=== PATIENT | female | born 1985 | race African-American/Black ===

== ENCOUNTER 2024-04-08 14:40 | Emergency (ER) | payer MEDICAID, SELFPAY ==
--- NOTE | ~2024-04-08 | CT_ITS ---
EXAMINATION: CT HEAD WITHOUT CONTRAST CLINICAL INFORMATION: Headache COMPARISON: None available. TECHNIQUE: Contiguous axial imaging was performed from the skull base to vertex without intravenous administration of contrast. This CT examination was performed using dose optimization techniques as appropriate, variously including the following: *Automated exposure control *Adjustment of mA and/or kV according to patient size (this includes techniques or standardized protocols for targeted exams where dose is matched to indication/reason for exam; i.e. extremities or head) *Use of iterative reconstruction technique DLP: 682 mGy-cm RESULTS: There is no evidence of acute intracranial hemorrhage, acute large vessel infarct, midline shift or mass effect. The walter-white differentiation is preserved. The ventricles and sulci are within normal limits in size and configuration. There is no evidence of hydrocephalus. There are no extraaxial collections. Osseous structures are intact. Left maxillary sinus mucosal thickening and fluid. CT/CT head/brain wo IV con IMPRESSION: 1. No acute intracranial pathology. 2. Left maxillary sinus disease. Electronically signed by: Brittany Interiano MD 04/08/2024 04:42 PM ES
--- NOTE | 2024-04-08 15:01 | ED.HA ---
HPI - Headache General Chief Complaint: Headache Stated Complaint: headache sent from urgent care Time Seen by Provider: 04/08/24 21:07 History of Present Illness ED Provider: Bobby ASHER Narrative: The patient is a 38-year-old female who says that she has been having problems with headaches for the last 2-3 months. She says that she has been taking a lot of Tylenol for these pains. She says that she may have had similar headaches a few years ago. She says that she recently stood up and felt that her vision was blurry. She has had no fever. She has had no neck stiffness. Related Data Previous Rx's ?Medication ?Instructions ?Recorded ibuprofen 400 mg tablet 400 mg PO Q6H PRN pain #14 tabs 04/08/24 Allergies Allergy/AdvReac Type Severity Reaction Status Date / Time No Known Allergies Allergy Verified 04/08/24 15:06 Review of Systems Review of Systems: Yes all other systems are reviewed and are negative [facility] Social History Social History Smoked in Last 30 Days: No Use of substances other than those prescribed or required for medical reasons: No Advance Directives: No Advance Directives Information Provided: Yes Patient : No Physical Exam Vital Signs: Vital Signs: Last Vital Signs Temp 97.8 F 04/08/24 21:57 Pulse 66 04/08/24 21:57 Resp 18 04/08/24 21:57 BP 108/67 04/08/24 21:57 Pulse Ox 100 04/08/24 21:57 O2 Del Method Room Air 04/08/24 21:57 BMI result Body Mass Index 27.5 Const: Other: The patient is awake, alert, cooperative. She does not appear ill. She does not appear obviously uncomfortable. HEENT: Other: Face is symmetrical. Mucous membranes moist. The pharynx is unremarkable. Eyes: Other: Pupils are round equal and reactive to light, conjunctivae are clear, extraocular movements are intact. Funduscopic exam is unremarkable. Neck: Other: The neck is entirely supple. She can touch her chin to her chest very easily. Resp: Effort & Inspection: normal respiratory effort Auscultation: clear to auscultation bilaterally Cardio: Rate: regular rate Rhythm: regular rhythm Heart sounds: S1 normal heart sound present and S2 normal heart sound present GI: Other: Abdomen is soft nontender Skin: Other: skin is dry and unremarkable Neuro: Other: the patient is awake and alert with normal mental status. Her demeanor is benign. Pupils are round, equal, and reactive to light, extraocular movements are intact, funduscopic exam was unremarkable, face is symmetrical, speech is clear, neck is supple, she moves her extremities normally and appropriately. I believe she is neurologically intact. He Extrem: Other: no peripheral edema Course Course Course Narrative: This is a Rapid Medical Exam performed in triage by Lee Ann Ambriz PA-C. Full HPI, ROS and PE to be performed by primary ED provider. 38yo F Israeli Creole speaking presenting to the ED c/o sent from for headache x2-3 months. Admits to assoc intermittent blurry vision since YODER started. Patient feels YODER may be related to increased stress/anxiety around trying to seek employment. Also reports menstruation 2 x monthly, heavy, unsure if this is related to headaches PE: no focal deficits, ambulating w/steady gait Plan: viral testing, head CT, labs Medications Administered Discontinued Medications Generic Name Dose Route Start Last Admin Trade Name Jak PRN Reason Stop Dose Admin Ketorolac Tromethamine 30 mg 04/08/24 21:20 04/08/24 21:31 Ketorolac Tromethamine 30 Mg/Ml Vial IM 04/08/24 21:21 30 mg ONCE ONE Administration Prochlorperazine Edisylate 10 mg 04/08/24 21:20 04/08/24 21:31 Prochlorperazine Edisylate 10 Mg/2 Ml Vial IM 04/08/24 21:21 10 mg ONCE ONE Administration Medical Decision Making Medical Decision Making [facility] Narrative: the patient is a previous healthy 38-year-old woman. She is from [facility]. She speaks Israeli Creole. She was interviewed using a [place] Creole registered nurse maternity. She is here for evaluation of a headache that has been bothering her for 2-3 months. She has had previous headaches in the past I believe. Clinically I think the patient's physical exam is extremely reassuring. Labs and head CT had been ordered at triage. These are unremarkable. The patient had had a long wait in the waiting room. She was eager to be discharged because she has 3 small children she needs to care for. She was given injection of ketorolac and prochlorperazine. She did not know who her primary care doctor was. the stockroom inventory clerk was able to determine that she should be seen at the [facility] in [place]. She was given their contact information for follow-up. She was also given the name of other PCP offices which may be taking new patients. She was discharged. Lab Data 04/08/24 15:20 04/08/24 15:20 Labs: Lab Results 04/08/24 Range/Units 15:20 WBC 6.9 (4.8-10.8) X10*3/uL RBC 3.63 L (4.20-5.50) X10*6/uL Hgb 10.2 L (12.0-16.0) g/dl Hct 31.4 L (37.0-47.0) % MCV 86.5 (80.0-98.0) fL MCH 28.1 (27.0-33.0) pg MCHC 32.5 (31.0-35.0) g/dl RDW 13.3 (11.0-16.0) % Plt Count 242 (160-400) X10*3/uL MPV 11.0 (9.4-12.3) fL Immature Gran % (Auto) 0.4 (0.0-0.4) % Neut % (Auto) 64.1 (45-73) % Lymph % (Auto) 27.2 (20-40) % Benzie % (Auto) 7.0 (2-11) % Eos % (Auto) 1.0 (0-4) % Baso % (Auto) 0.3 (0-2) % Lymph # (Auto) 1.9 (1.2-4.9) X10*3/uL Benzie # (Auto) 0.5 (0.1-1.2) X10*3/uL Eos # (Auto) 0.1 (0.0-0.4) X10*3/uL Baso # (Auto) 0.0 (0.0-0.2) X10*3/uL Abs Immat Gran (auto) 0.03 (0.00-0.03) X10*3/uL Absolute Neuts (auto) 4.4 (2.0-8.3) x10*3/uL Absolute Nucleated RBC 0.000 (0.0-0.012) X10*3/uL Nucleated RBC % (auto) 0.0 (0.0-0.2) /100WBC Sodium 142 (135-145) mmol/L Potassium 3.6 (3.3-5.1) mmol/L Chloride 109 H (96-108) mmol/L Carbon Dioxide 24 (22-29) mmol/L Anion Gap 13 (12-20) BUN 11 (9-16) mg/dL Creatinine 0.79 (0.5-1.4) mg/dL Estim Creat Clear Calc 101.4 Estimated GFR > 60 Random Glucose 83 (60-115) mg/dL Calcium 9.0 (8.4-10.2) mg/dL Total Bilirubin 0.4 (0.0-1.0) mg/dL Direct Bilirubin 0.1 (0.0-0.5) mg/dL AST 19 (5-31) U/L ALT 15 (0-31) U/L Alkaline Phosphatase 49 (39-117) U/L C-Reactive Protein < 0.10 (< or = 0.50) mg/dL Total Protein 6.9 (6.5-8.0) g/dL Albumin 4.0 (3.5-5.0) g/dL Beta HCG, Quant < 2 mIU/mL Influenza Type A (PCR) NEGATIVE (Negative) Influenza Type B (PCR) NEGATIVE (Negative) RSV RNA Qual (PCR) NEGATIVE (Negative) SARS-CoV-2 RNA (RT-PCR) NEGATIVE (Negative) Discharge Plan Discharge Clinical Impression: Headache Patient Disposition: Home, Self-Care Additional Instructions: Your testing in the emergency department today seems reassuring. You were given shots of medicine which I hope will help with your headache. Please work on getting a new primary care doctor. Our stockroom inventory clerk has determined that you should be getting your primary care through the [facility] at [address] [place] [address] in [place]. I have also put the names of 2 other providers who might be taking new patients. You may use ibuprofen and acetaminophen as needed for pain. I have sent a prescription for ibuprofen to the [facility] on [address] in [place]. Return to the emergency room if worse. Prescriptions: New ibuprofen 400 mg tablet 400 mg PO Q6H PRN (Reason: pain) Qty: 14 0RF Referrals: [facility] [Provider Group] (Headache) Mihaela Andrews PA-C [Physician Glue Maker] - (Headache, needs PCP) Alexandru Oliva MD [Physician] - (headache, needs PCP) Interventions: ED Discharge Assessment Last Done: 04/08/24 21:57 Discharge Date/Time: 04/08/24 21:58 Print Language: Vincent Jamil
[2024-04-08 15:04] VITALS: BP 121/70; PULSE 80; RESP 16; TEMP 36.8; O2SAT 98; BMI 27.5
[2024-04-08 15:26] LABS: MANUAL DIFF FLAG NO
[2024-04-08 15:28] LABS: Basophils Percent Auto 0.3 % (0-2); Eosinophils Absolute Auto 0.1 X10*3/uL (0.0-0.4); Hematocrit 31.4 % (37.0-47.0); Hemoglobin 10.2 g/dl (12.0-16.0); Imm Gran Abs Auto 0.03 X10*3/uL (0.00-0.03); Imm Gran Pct Auto 0.4 % (0.0-0.4); Lymphocytes Absolute Auto 1.9 X10*3/uL (1.2-4.9); Lymphocytes Percent Auto 27.2 % (20-40); Mean Corpuscular HGB Conc 32.5 g/dl (31.0-35.0); Mean Corpuscular Hemoglobin 28.1 pg (27.0-33.0); Mean Corpuscular Volume 86.5 fL (80.0-98.0); Monocytes Absolute Auto 0.5 X10*3/uL (0.1-1.2); Neutrophils Absolute Auto 4.4 x10*3/uL (2.0-8.3); Neutrophils Percent Auto 64.1 % (45-73); Platelet Count 242 X10*3/uL (160-400); Red Blood Count 3.63 X10*6/uL (4.20-5.50); Red Cell Distribution Width 13.3 % (11.0-16.0); White Blood Count 6.9 X10*3/uL (4.8-10.8)
[2024-04-08 15:41] LABS: Anion Gap 13 (12-20); Blood Urea Nitrogen 11 mg/dL (9-16); Carbon Dioxide 24 mmol/L (22-29); Chloride 109 mmol/L (96-108); Creatinine Clr Calc Pharmacy 101.4; Estimated Glomerular Filt Rate > 60; Glucose Random 83 mg/dL (60-115); Potassium 3.6 mmol/L (3.3-5.1); Sodium 142 mmol/L (135-145)
[2024-04-08 15:47] LABS: HCG Quantitative < 2 mIU/mL
[2024-04-08 17:28] LABS: Influenza A PCR NEGATIVE (Negative); Influenza B PCR NEGATIVE (Negative); Resp Syncy Virus RNA Qual PCR NEGATIVE (Negative); SARS COV2 PCR INHOUSE NEGATIVE (Negative)
[2024-04-08 20:23] VITALS: BP 105/49; PULSE 73; RESP 16; TEMP 36.4; O2SAT 100
[2024-04-08] MEDS: Ketorolac Tromethamine 30 MG/ML VIAL IM (21:31)
[2024-04-08] MEDS: Prochlorperazine Edisylate 10 MG/2 ML VIAL IM (21:31)
[2024-04-08 21:40] LABS: C Reactive Protein < 0.10 mg/dL (< or = 0.50)
[2024-04-08 21:57] VITALS: BP 108/67; PULSE 66; RESP 18; TEMP 36.6; O2SAT 100
[2024-04-08 22:31] LABS: Alanine Aminotransferase 15 U/L (0-31); Alkaline Phosphatase 49 U/L (39-117); Aspartate Amino Transferase 19 U/L (5-31); Bilirubin Direct 0.1 mg/dL (0.0-0.5); Bilirubin Total 0.4 mg/dL (0.0-1.0); Total Protein 6.9 g/dL (6.5-8.0)
== END 2024-04-08 21:58 | disposition home or self-care (01) ==
PROVIDERS: Physician Assistant; Emergency Provider Emergency Medicine
DX: R51.9 Headache, unspecified (principal); Z03.818 Encounter for observation for suspected exposure to other biological agents ruled out
CPT/HCPCS: 0241U; 36415; 70450; 80048; 80076; 84702; 85025; 86140; 96372; 99284; J0737; J1885